=== PATIENT | female | born 1960 | race Caucasian/White ===

== ENCOUNTER 2022-03-19 07:00 | Day surgery (SDC) | payer MEDICARE, OTHER ==
[~2022-03-19] VITALS: Ht 165.1 cm; Wt 106.8 kg
[~2022-03-19 07:00] MED LIST: BAYER CHEWABLE81 MG PO; CARBIDOPA-LEVO1 EAC1 PO; CELEXA20 MG PO; CYCLOBENZAPRINE10 MG PO; DESONIDE15 G1; DIALYVITE 8001 EAC1 PO; FLONASE ALLERG9.9 ML; IMVEXXY10 MCG VG; KETOROLAC TROME10 MG PO; KLONOPIN0.5 MG PO; LEVOTHYROXINE150 MC1 PO; LOPID600 MG PO; MELATONIN5 M2 PO; MELOXICAM15 MG PO; MUCOSA400 MG PO; NEPHRON FA TAB1 EAC1 PO; OMEGA 3 1,0001 EACH PO; OPTIFLEX COMPL1 EACH PO; OSTERA TABLET1 EACH PO; PEPCID20 MG PO; PROAIR HFA8.5 GM; PROPRANOLOL HCL20 MG PO; SINGULAIR10 MG PO; ZINC10 MG PO; ZYRTEC10 MG PO
--- NOTE | 2022-03-19 07:37 | NUR ---
PT ARRIVED AND INTO ROOM 3. CHANGED INTO GROWN, VOIDED AND IV PLACED IN LT ARM AND SALINE LOCK IN RT HAND BY RN.
--- NOTE | 2022-03-19 08:41 | NUR ---
PT HAS BEEN UP AMBULATING TO THE BATHROOM, IV SITE WNL'S AT THIS TIME. IS OUT IN LOBBY WITH PAGER 13
[2022-03-19] MEDS ORDERED: TRAMADOL HCL50 MG PO (09:45)
--- NOTE | 2022-03-19 09:49 | NUR ---
03/19/22 0949 Lula Castanon 0944 PATIENT ARRIVES TO PACU RESTING WITH EYES CLOSED. ANSWERS QUESTIONS APPROPRIATELY WITH VERBAL STIMULI. RESP EVEN AND UNLABORED, MASK AT 6 LITERS, TURNED OFF ON ARRIVAL TO PACU.
--- NOTE | 2022-03-20 11:53 | OR ---
[facility] [address] [place], [place] [address] Signed DATE OF OPERATION: 03/19/2022 SURGEON: Sylvia Zuniga MD PREOPERATIVE DIAGNOSIS: Carpal tunnel syndrome, right. POSTOPERATIVE DIAGNOSIS: Carpal tunnel syndrome, right. PROCEDURE PERFORMED: Carpal tunnel release, right. COVER CREASER: None. ANESTHESIA: Alan block. TOURNIQUET TIME: 20 minutes. BRIEF HISTORY: Danilo is a 61-year-old female with progressive numbness and pain in her wrist. Nerve conduction studies were consistent with carpal tunnel. Risks and benefits of operative treatment were discussed with her and she elected to proceed. DESCRIPTION OF PROCEDURE: Once consent was obtained, she was taken to the operating room. After adequate anesthesia, she was placed on the hand table. The arm was prepped and draped in the standard sterile fashion and the incision was made in the distal wrist crease. This was carried through skin and subcutaneous tissue and directly down onto the transverse carpal ligament. The palmaris longus was identified, retracted, and protected. The transverse carpal ligament was dissected free from overlying soft tissue under loupe magnification. It was then released proximally a centimeter and distally to the distal extent. The transverse carpal ligament was noted to be completely released and palpated using the [place]. The wound was copiously irrigated with normal saline and closed with 3-0 nylon, injected with 7 mL of 0.25% Marcaine plain. The wound was dressed with bacitracin, Adaptic, 4x8's, and gauze. She tolerated the procedure well. All sponge, needle, and Electronically Signed By: SYLVIA ZUNIGA MD 03/20/22 1153 PATIENT NAME: DANILO ALTAMIRANO OPERATIVE REPORT DATE OF : 56 REPORT #: [id number] PHYSICIAN: SYLVIA ZUNIGA MD PCP: RELL CAMEJO MD REPORT IS CONFIDENTIAL AND NOT TO BE RELEASED WITHOUT AUTHORIZATION [facility] [address] [place], [place] [address], [place] [address] Signed instrument counts were correct. Sylvia Zuniga MD BA/MODL /[id number] Copies: ~ Electronically Signed By: SYLVIA ZUNIGA MD 03/20/22 1153 PATIENT NAME: DANILO ALTAMIRANO OPERATIVE REPORT DATE OF : 56 REPORT #: [id number] PHYSICIAN: SYLVIA ZUNIGA MD PCP: RELL CAMEJO MD REPORT IS CONFIDENTIAL AND NOT TO BE RELEASED WITHOUT AUTHORIZATION
== END 2022-03-19 10:20 | disposition home or self-care (01) ==
LOC: DS 07:00
PROVIDERS: ATTEND Specialist
PROC: 01N50ZZ Release Median Nerve, Open Approach (ICD-10-PCS; principal; 2022-03-19 10:00)
DX: G56.01 Carpal tunnel syndrome, right upper limb (principal); J45.909 Unspecified asthma, uncomplicated; G20 Parkinson's disease; Z88.5 Allergy status to narcotic agent; Z88.1 Allergy status to other antibiotic agents; Z88.8 Allergy status to other drugs, medicaments and biological substances; Z91.012 Allergy to eggs; Z91.018 Allergy to other foods; Z91.048 Other nonmedicinal substance allergy status
CPT/HCPCS: J0131; J0690; J2405; J2704

== ENCOUNTER 2022-05-07 08:20 | Day surgery (SDC) | payer MEDICARE, OTHER ==
[~2022-05-07] VITALS: Ht 165.1 cm; Wt 106.8 kg
[~2022-05-07 08:20] MED LIST changes: +TRAMADOL HCL50 MG PO
[2022-05-07] MEDS ORDERED: HYDROCODON-ACE1 EA10 PO (11:11)
--- NOTE | 2022-05-07 12:03 | NUR ---
05/07/22 1203 Jenae Fernandez 1109 PT ARRIVED IN PACU AWAKE WITH NO C/O'S. L HAND ELEVATED ON PILLOW AND ICE PLACED. 1120 SITTING UP IN BED VISITING WITH STAFF. 1145 DC INSTRUCTIONS GIVEN. ALL QUESTIONS ANSWERED. 1200 UP TO BATHROOM. VOIDED. 1205 LEFT VIA W/C.
--- NOTE | 2022-05-08 08:55 | OR ---
[facility] [address] [place], [place] [address] Signed DATE OF OPERATION: 05/07/2022 SURGEON: Sylvia Zuniga MD PREOPERATIVE DIAGNOSIS: Carpal tunnel syndrome, left. POSTOPERATIVE DIAGNOSIS: Carpal tunnel syndrome, left. PROCEDURE PERFORMED: Left carpal tunnel release. INSPECTOR PENETRANT: None. ANESTHESIA: Alan block. TOURNIQUET TIME: 12 minutes. BRIEF HISTORY: Danilo is a 62-year-old female with bilateral carpal tunnel. She had undergone successful right release and wished to proceed with the left. Risks and benefits were discussed with her and she elected to proceed. Once consent was obtained, she was taken to the operating room after adequate anesthesia, she was left on day surgery cart. The hand table was brought in and after adequate anesthesia, the hand was prepped and draped in a standard sterile fashion. A 1.5 cm incision was made in the distal wrist crease, carried through skin and subcutaneous tissue and directly down onto the transverse carpal ligament. There was some remnants of palmaris longus that were retracted. The overlying soft tissue was removed off the transverse carpal ligament under loupe magnification. It was then transected approximately a centimeter and distally to the distal extent. This was palpated using a [place] and found to be completely released. The wound was copiously irrigated with normal saline and closed with 3-0 nylon and injected with 6 mL of 0.25% Marcaine plain. The wound was dressed with bacitracin, Adaptic, 4 x 8's, gauze. She tolerated the procedure well. All sponge, needle, and instrument counts were correct. Electronically Signed By: SYLVIA ZUNIGA MD 05/08/22 0855 PATIENT NAME: DANILO ALTAMIRANO OPERATIVE REPORT DATE OF : 56 REPORT #: [id number] PHYSICIAN: SYLVIA ZUNIGA MD PCP: RELL CAMEJO MD REPORT IS CONFIDENTIAL AND NOT TO BE RELEASED WITHOUT AUTHORIZATION [address] [address] Signed Sylvia Zuniga MD BA/MODL /[id number] Copies: ~ Electronically Signed By: SYLVIA ZUNIGA MD 05/08/22 0855 PATIENT NAME: DANILO ALTAMIRANO OPERATIVE REPORT DATE OF : 56 REPORT #: [id number] PHYSICIAN: SYLVIA ZUNIGA MD PCP: RELL CAMEJO MD REPORT IS CONFIDENTIAL AND NOT TO BE RELEASED WITHOUT AUTHORIZATION
== END 2022-05-07 11:50 | disposition home or self-care (01) ==
LOC: DS 08:20
PROVIDERS: ATTEND Specialist
PROC: 01N50ZZ Release Median Nerve, Open Approach (ICD-10-PCS; principal; 2022-05-07 12:25)
DX: G56.02 Carpal tunnel syndrome, left upper limb (principal)
CPT/HCPCS: J0690; J1885; J2001; J2704; J7121

== ENCOUNTER 2023-09-02 20:48 | Emergency (ER) | payer MEDICARE, OTHER ==
[~2023-09-02] VITALS: Ht 165.1 cm; Wt 109.0 kg
[~2023-09-02 20:48] MED LIST changes: +BENZONATATE100 MG PO; +FLOVENT HFA10.6 GM INH; +GABAPENTIN300 MG PO; +HYDROCODON-ACE1 EA10 PO; +HYDROCODON-ACE1 EA11 PO; +METHOCARBAMOL500 MG PO; +OXYCODONE HCL5 MG PO
--- OUTSIDE RECORDS SUMMARY | 2023-09-02 20:50 | XMS ---
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 Anthony VISIT COUNT (12 MO.) [address] TOTAL 3 NOTE: Visits indicate total known visits. ED/UCC VISIT TRACKING (12 MO.) 09/02/2023 20:49 [facility] [place] TYPE: Emergency COMPLAINT: - CHEST PAIN, SOB 09/02/2023 17:37 [facility] [employer] [facility] [place] TYPE: Emergency COMPLAINT: - Chest Pain DIAGNOSES: - Chest Pain 10/22/2022 11:45 [facility] [employer] [facility] [place] TYPE: Emergency DIAGNOSES: - Contusion of scalp, initial encounter - FALL HIT HEAD INPATIENT VISIT TRACKING (12 MO.) No inpatient visits to display in this time frame [email or web address]
[2023-09-02 21:07] LABS: BASOPHILS 0.4 % (0-2); EOSINOPHILS 2.4 % (0-6); HEMATOCRIT 38.5 % (35.0-50.0); HEMOGLOBIN 12.4 g/dL (12.0-18.0); LYMPHOCYTES 21.1 % (24-44); MCH 29.1 (27-36); MCHC 32.3 g/dl (30-36); MCV 90.3 fl (81-99); MONOCYTES 8.1 % (0-12); PLATELET COUNT 380 K/uL (140-440); RBC 4.26 M/ul (4.3-5.7); RDW 13.6 (10.5-15.0)
[2023-09-02] MEDS ORDERED: CITALOPRAM HBR20 MG PO (21:08)
[2023-09-02 21:29] LABS: ALBUMIN 2.8 g/dL (3.4-5.0); ALBUMIN/GLOBULIN RATIO 0.55 (1.1-2.4); BILIRUBIN, TOTAL 0.3 ng/dL (0.2-1.0); BUN/CREATININE RATIO 22.22 (6.0-28.6); CALCIUM 9.6 mg/dL (8.5-10.1); CREATININE, SERUM 0.81 mg/dL (0.55-1.02); PROTEIN, TOTAL 7.9 g/dL (6.4-8.2)
[2023-09-02 21:41] LABS: INR 0.98 (0.80-1.30); PARTIAL THROMBOPLASTIN TIME 36.5 Sec (22.9-41.3); PROTIME 12.6 Sec (11.2-14.2)
[2023-09-02 21:57] LABS: INFLUENZA B NAA NEGATIVE (NEGATIVE); RESPIRATORY SYNCYTIAL VIR NAA NEGATIVE (NEGATIVE)
[2023-09-02] MEDS ORDERED: AZITHROMYCIN500 MG PO (23:11)
[2023-09-02] MEDS ORDERED: CEFDINIR300 MG PO (23:11)
[2023-09-02] MEDS ORDERED: FLUCONAZOLE150 MG PO (23:32)
[2023-09-02 23:40] VITALS: BP 147/62
--- NOTE | 2023-09-03 22:32 | EKG ---
[facility] [address] [place] [address] Signed Normal sinus rhythm Normal ECG When compared with ECG of 16-AUG-2023 12:55, No significant change was found Confirmed by Jason Mcneil MD () on 09/03/2023 10:32:21 PM Electronically Signed By: JASON MCNEIL MD 09/03/232231 PATIENT NAME: DANILO ALTAMIRANO ALEXSANDRA Electrocardiogram DATE OF : 56 PHYSICIAN: JASON MCNEIL MD REPORT #: [id number] REPORT IS CONFIDENTIAL AND NOT TO BE RELEASED WITHOUT AUTHORIZATION
== END 2023-09-02 23:40 | disposition home or self-care (01) ==
LOC: ED 20:48
PROVIDERS: Family Medicine
DX: J18.9 Pneumonia, unspecified organism (principal); J45.909 Unspecified asthma, uncomplicated; G20.A1 Parkinson's disease without dyskinesia, without mention of fluctuations; Z20.822 Contact with and (suspected) exposure to COVID-19; Z98.890 Other specified postprocedural states; Z88.6 Allergy status to analgesic agent; Z88.1 Allergy status to other antibiotic agents; Z91.012 Allergy to eggs; Z91.040 Latex allergy status; Z88.5 Allergy status to narcotic agent; Z88.8 Allergy status to other drugs, medicaments and biological substances; Z91.018 Allergy to other foods; Z91.048 Other nonmedicinal substance allergy status; Z79.82 Long term (current) use of aspirin; Z79.890 Hormone replacement therapy; Z79.899 Other long term (current) drug therapy
CPT/HCPCS: 36415; 71045; 71260; 80053; 84484; 85025; 85379; 85610; 85730; 87502; 93005; 93010; 94640; 94664; 96374; 96375; 99285-25; J0696; J1100; J1200; Q9967; U0002

== ENCOUNTER 2024-06-13 15:55 | Inpatient (IN) | payer MEDICARE, OTHER ==
[~2024-06-13] VITALS: Ht 165.1 cm; Wt 101.0 kg
[~2024-06-13 15:55] MED LIST changes: +ADULT LOW DOSE81 MG PO; +AZITHROMYCIN500 MG PO; +B COMPLEX1 EACH PO; -BAYER CHEWABLE81 MG PO; +CALCIUM 500 MG1 EAC6 PO; +CEFDINIR300 MG PO; +CITALOPRAM HBR20 MG PO; +FLUCONAZOLE150 MG PO; +MUCINEX1200 MG PO; -MUCOSA400 MG PO; -NEPHRON FA TAB1 EAC1 PO; -OSTERA TABLET1 EACH PO; +PRILOSEC OTC20 MG PO; +PROAIR DIGIHAL90 MCG INH; -PROAIR HFA8.5 GM; -ZINC10 MG PO; +ZINC50 MG PO
[2024-06-13] MEDS ORDERED: DESONIDE15 G1 TOP (16:32)
[2024-06-13] MEDS ORDERED: DICLOFENAC SODI75 MG PO (16:33)
[2024-06-13] MEDS ORDERED: DULOXETINE HCL30 MG PO (16:34)
[2024-06-13] MEDS ORDERED: FLUTICASONE P10.6 GM INH (16:35)
[2024-06-13] MEDS ORDERED: ZYRTEC10 MG PO (16:39)
[2024-06-13] MEDS ORDERED: ondansetron HCL 4 MG/2 ML VIAL IV ONE (17:15)
[2024-06-13] MEDS ORDERED: SODIUM CHLORIDE 0.9% 1,000 ML IV ONE (17:15)
[2024-06-13 17:40] LABS: BASOPHILS 0.3 % (0-2); EOSINOPHILS 1.2 % (0-6); HEMATOCRIT 30.9 % (35.0-50.0); HEMOGLOBIN 10.1 g/dL (12.0-18.0); LYMPHOCYTES 9.8 % (24-44); MCH 27.2 (27-36); MCHC 32.6 g/dl (30-36); MCV 83.2 fl (81-99); MONOCYTES 9.6 % (0-12); NEUTROPHILS 79.1 % (39-80); PLATELET COUNT 481 K/uL (140-440); RBC 3.71 M/ul (4.3-5.7); RDW 14.2 (10.5-15.0)
[2024-06-13 17:47] LABS: ALBUMIN 1.8 g/dL (3.4-5.0); ALBUMIN/GLOBULIN RATIO 0.45 (1.1-2.4); ANION GAP 12.2 (7-21); BILIRUBIN, TOTAL 0.5 ng/dL (0.2-1.0); BUN/CREATININE RATIO 19.53 (6.0-28.6); CALCIUM 8.9 mg/dL (8.5-10.1); CREATININE, SERUM 1.28 mg/dL (0.55-1.02); MAGNESIUM 1.9 mg/dL (1.8-2.4); POTASSIUM 4.2 mmol/L (3.5-5.1); PROTEIN, TOTAL 5.8 g/dL (6.4-8.2)
[2024-06-13] MEDS ORDERED: SODIUM CHLORIDE 0.9% 1,000 ML IV SCH (19:15)
[2024-06-13 19:39] LABS: BILIRUBIN, URINE NEGATIVE (negative); BLOOD/HGB, URINE NEGATIVE (Negative); KETONE, URINE NEGATIVE (Negative); LEUK ESTERASE, URINE NEGATIVE (negative); NITRITE, URINE NEGATIVE (negative); PH, URINE 5.5 (5-7)
[2024-06-13] MEDS ORDERED: diphenhydrAMINE HCL 50 MG/ML VIAL IV ONE (20:15)
[2024-06-13] MEDS ORDERED: DEXAMETHASONE SOD PHOS 4 MG/ML VIAL IV ONE (20:15)
[2024-06-13] MEDS ORDERED: droPERidol 5 MG/2 ML VIAL IV ONE (21:00)
[2024-06-13] MEDS ORDERED: FAMOTIDINE 20 MG/ 2 ML VIAL IV SCH (21:44)
[2024-06-13] MEDS ORDERED: ACETAMINOPHEN 325 MG TAB PO PRN (21:45)
[2024-06-13] MEDS ORDERED: ondansetron HCL 4 MG/2 ML VIAL IV PRN (21:45)
[2024-06-13] MEDS ORDERED: DEXTROSE 5% - LACTATED RINGERS 1,000 ML IV SCH (21:45)
[2024-06-13 22:08] VITALS: BP 126/55
[2024-06-13] MEDS ORDERED: LEVODOPA/CARBIDOPA 25/100 1 EA TAB PO SCH (22:31)
[2024-06-13] MEDS ORDERED: MELATONIN 3 MG TAB PO SCH (22:35)
[2024-06-13 23:26] VITALS: BP 117/44
[2024-06-14] VITALS (7 sets, daily range): BP systolic 112–151; BP diastolic 46–60
[2024-06-14 06:08] LABS: BASOPHILS 0.2 % (0-2); EOSINOPHILS 0.1 % (0-6); HEMATOCRIT 27.2 % (35.0-50.0); LYMPHOCYTES 13.5 % (24-44); MCH 27.7 (27-36); MCHC 33.1 g/dl (30-36); MCV 83.5 fl (81-99); MONOCYTES 6.3 % (0-12); NEUTROPHILS 79.9 % (39-80); PLATELET COUNT 451 K/uL (140-440); RBC 3.25 M/ul (4.3-5.7); RDW 14.4 (10.5-15.0)
[2024-06-14 06:25] LABS: ALBUMIN 1.6 g/dL (3.4-5.0); ALBUMIN/GLOBULIN RATIO 0.43 (1.1-2.4); ANION GAP 13.5 (7-21); BILIRUBIN, TOTAL 0.2 ng/dL (0.2-1.0); BUN/CREATININE RATIO 16.93 (6.0-28.6); CALCIUM 8.7 mg/dL (8.5-10.1); CREATININE, SERUM 1.24 mg/dL (0.55-1.02); MAGNESIUM 2.1 mg/dL (1.8-2.4); POTASSIUM 4.5 mmol/L (3.5-5.1); PROTEIN, TOTAL 5.3 g/dL (6.4-8.2)
[2024-06-14] MEDS ORDERED: CLONAZEPAM1 MG PO (09:25)
[2024-06-14] MEDS ORDERED: LEVOTHYROXINE150 MCG PO (09:31)
[2024-06-14] MEDS ORDERED: LACTATED RINGER'S 1,000 ML IV SCH (10:15)
[2024-06-14] MEDS ORDERED: ACETAMINOPHEN 325 MG TAB PO PRN (10:15)
[2024-06-14] MEDS ORDERED: ondansetron HCL 4 MG/2 ML VIAL IV PRN (10:15)
[2024-06-14] MEDS ORDERED: PHARMACY RENAL DOSE ADJUSTMENT 1 DOSE MISC PO SCH (12:00)
[2024-06-14] MEDS ORDERED: PANTOPRAZOLE SODIUM 40 MG/10 ML VIAL IV SCH (14:45)
[2024-06-14] MEDS ORDERED: DEXAMETHASONE SOD PHOS 4 MG/ML VIAL IV SCH (21:00)
[2024-06-15] VITALS (9 sets, daily range): BP systolic 137–149; BP diastolic 64–88
[2024-06-15 05:41] LABS: HEMATOCRIT 27.3 % (35.0-50.0); HEMOGLOBIN 8.9 g/dL (12.0-18.0); MCH 27.1 (27-36); MCHC 32.6 g/dl (30-36); MCV 83.1 fl (81-99); PLATELET COUNT 481 K/uL (140-440); RBC 3.28 M/ul (4.3-5.7); RDW 14.3 (10.5-15.0)
[2024-06-15 05:53] LABS: ALBUMIN 1.7 g/dL (3.4-5.0); ALBUMIN/GLOBULIN RATIO 0.47 (1.1-2.4); ANION GAP 13.2 (7-21); BILIRUBIN, TOTAL 0.3 ng/dL (0.2-1.0); BUN/CREATININE RATIO 8.73 (6.0-28.6); CALCIUM 8.8 mg/dL (8.5-10.1); CREATININE, SERUM 1.03 mg/dL (0.55-1.02); MAGNESIUM 1.5 mg/dL (1.8-2.4); PHOSPHORUS, INORGANIC 3.4 mg/dL (2.5-4.9); POTASSIUM 4.2 mmol/L (3.5-5.1); PROTEIN, TOTAL 5.3 g/dL (6.4-8.2)
[2024-06-15 05:58] LABS: BANDS, MANUAL DIFF 4; LYMPHOCYTES, MANUAL DIFF 25; MONOCYTES, MANUAL DIFF 8; NEUTROPHILS, MANUAL DIFF 63
[2024-06-15] MEDS ORDERED: MAGNESIUM CHLORIDE 64 MG TABCR PO ONE (08:30)
[2024-06-15] MEDS ORDERED: propofoL 200 MG/20 ML VIAL ONE (14:33)
[2024-06-15] MEDS ORDERED: PANTOPRAZOLE SODIUM 40 MG TABEC PO SCH (16:45)
[2024-06-15] MEDS ORDERED: MESALAMINE 400 MG CAPCR PO SCH (17:00)
[2024-06-15] MEDS ORDERED: metroNIDAZOLE 250 MG TAB PO SCH (17:00)
[2024-06-15] MEDS ORDERED: HYDROCORTISONE SOD SUCCINATE 100 MG/2 ML VIAL IV SCH (22:00)
[2024-06-16] VITALS (12 sets, daily range): BP systolic 129–148; BP diastolic 57–88
[2024-06-16 06:33] LABS: HEMATOCRIT 27.6 % (35.0-50.0); MCH 27.5 (27-36); MCHC 32.8 g/dl (30-36); MCV 83.8 fl (81-99); PLATELET COUNT 510 K/uL (140-440); RBC 3.29 M/ul (4.3-5.7); RDW 14.6 (10.5-15.0)
[2024-06-16 06:53] LABS: ALBUMIN 1.6 g/dL (3.4-5.0); ALBUMIN/GLOBULIN RATIO 0.47 (1.1-2.4); ANION GAP 12.8 (7-21); BILIRUBIN, TOTAL 0.2 ng/dL (0.2-1.0); BUN/CREATININE RATIO 5.68 (6.0-28.6); CALCIUM 8.2 mg/dL (8.5-10.1); CREATININE, SERUM 0.88 mg/dL (0.55-1.02); MAGNESIUM 1.4 mg/dL (1.8-2.4); PHOSPHORUS, INORGANIC 3.6 mg/dL (2.5-4.9); POTASSIUM 3.8 mmol/L (3.5-5.1); TSH, 3RD GENERATION 1.746 uIU/mL (0.358-3.740)
[2024-06-16 06:56] LABS: BANDS, MANUAL DIFF 1; LYMPHOCYTES, MANUAL DIFF 19; MONOCYTES, MANUAL DIFF 6; NEUTROPHILS, MANUAL DIFF 74
[2024-06-16] MEDS ORDERED: POTASSIUM CHLORIDE 40 MEQ,LIDOCAINE HCL 1% 40 MG in DEXTROSE 5% 250 ML IV ONE (08:30)
[2024-06-16] MEDS ORDERED: MAGNESIUM SULFATE 2 GM/50 ML BAG IV SCH (08:30)
[2024-06-16] MEDS ORDERED: predniSONE 20 MG TAB PO SCH (09:00)
[2024-06-16] MEDS ORDERED: clonazePAM 1 MG TAB PO PRN (16:45)
[2024-06-16] MEDS ORDERED: GABAPENTIN 300 MG CAP PO SCH (21:00)
[2024-06-16] MEDS ORDERED: MONTELUKAST SODIUM 10 MG TAB PO SCH (21:00)
[2024-06-16] MEDS ORDERED: PROPRANOLOL HCL 20 MG TAB PO SCH (21:00)
--- NOTE | 2024-06-16 21:20 | EKG ---
[facility] [address] [facility] [place] [address] Signed Atrial fibrillation with rapid ventricular response Low voltage QRS Abnormal QRS-T angle, consider primary T wave abnormality Abnormal ECG When compared with ECG of 02-SEP-2023 20:56, Atrial fibrillation is now present Confirmed by Jason Mcneil MD () on 06/16/2024 9:20:51 PM Electronically Signed By: JASON MCNEIL MD 06/16/242119 PATIENT NAME: DANILO ALTAMIRANO Electrocardiogram DATE OF : 56 PHYSICIAN: JASON MCNEIL MD REPORT #: [id number] REPORT IS CONFIDENTIAL AND NOT TO BE RELEASED WITHOUT AUTHORIZATION
[2024-06-17] VITALS (10 sets, daily range): BP systolic 129–158; BP diastolic 57–75
[2024-06-17 05:16] LABS: BASOPHILS 0.4 % (0-2); EOSINOPHILS 0.2 % (0-6); HEMOGLOBIN 8.8 g/dL (12.0-18.0); LYMPHOCYTES 11.7 % (24-44); MCH 27.2 (27-36); MCHC 32.6 g/dl (30-36); MCV 83.3 fl (81-99); MONOCYTES 2.6 % (0-12); NEUTROPHILS 85.1 % (39-80); PLATELET COUNT 507 K/uL (140-440); RBC 3.24 M/ul (4.3-5.7); RDW 14.6 (10.5-15.0)
[2024-06-17 05:31] LABS: ALBUMIN 1.7 g/dL (3.4-5.0); ALBUMIN/GLOBULIN RATIO 0.5 (1.1-2.4); ANION GAP 8.3 (7-21); BILIRUBIN, TOTAL 0.1 ng/dL (0.2-1.0); BUN/CREATININE RATIO 6.38 (6.0-28.6); CALCIUM 8.5 mg/dL (8.5-10.1); CREATININE, SERUM 0.94 mg/dL (0.55-1.02); POTASSIUM 4.3 mmol/L (3.5-5.1); PROTEIN, TOTAL 5.1 g/dL (6.4-8.2)
[2024-06-17] MEDS ORDERED: LEVOTHYROXINE SODIUM 150 MCG TAB PO SCH (06:00)
[2024-06-17] MEDS ORDERED: DULOXETINE HCL 30 MG CAP PO SCH (09:00)
[2024-06-17] MEDS ORDERED: CITALOPRAM HYDROBROMIDE 20 MG TAB PO SCH (09:00)
--- NOTE | 2024-06-17 14:26 | OR ---
[facility] [place] [facility] [address] [place], [place] [address] Signed DATE OF OPERATION: 06/15/2024 SURGEON: Fercho Howell MD PREOPERATIVE DIAGNOSES: 1. Intractable diarrhea, progressive weight loss. CT findings consistent with colitis. 2. History of norovirus infection greater than two weeks ago; negative Clostridium difficile, negative enteric pathogens. 3. Elevated CRP greater than 20. POSTOPERATIVE DIAGNOSIS: Pancolitis including rectum, most consistent with ulcerative colitis. PROCEDURE: Total colonoscopy with multiple biopsies. ANESTHESIA: Intravenous sedation propofol infusion. INDICATION: This 64-year-old white woman lives in [place], [place]. Has had six weeks of progressive weight loss, intractable diarrhea and rare blood per rectum. She was evaluated in [place] and noted to have a norovirus positive stool approximately two weeks ago, but no unusual travel or cruise ship activity. She presented to emergency room on June 13, evaluated by Dr. Castillo and ultimately admitted by Dr. Ortiz. A CT scan was performed which showed inflammatory change of the mucosa. She had been treated as an outpatient with Imodium and Pepto-Bismol; she is a patient of Dr. Waldrop in [place]. Consultation was requested regarding this and I have recommended colonoscopy on the basis of her symptoms and high probability, this represents inflammatory bowel disease. Colonoscopy is recommended. She did not undergo a bowel prep per se, as she has had profound diarrhea all along. The risk of bleeding, infection, and perforation were reviewed with her. She understands and wished to proceed. FINDINGS: Indeed she had pancolitis. Friability of the mucosa was significant. There were some minimal pseudomembrane formation, but the diagnosis remains most consistent with ulcerative colitis. There was inflammation of the rectum as well. She had scattered diverticula, but no polyps and certainly no malignancy. 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 She had a digital rectal examination that was performed which was normal. Olympus video colonoscope was passed in the rectum and manipulated throughout the colon as far as possible. Ultimately terminating in the area consistent with cecum. No distortion of the anatomy was noted related to inflammatory changes, which were significant. Biopsies were obtained. She did have erythematous base, easy friability of the mucosa and its semi-formation of pseudomembrane to a degree. Biopsies were taken. Upon withdrawal of scope throughout the colon including the rectum, there were a few diverticula. No polyps, no cancer. The scope was removed. The patient was taken to the recovery room in good condition. CONCLUDING DIAGNOSIS: Findings are most consistent with ulcerative colitis, particularly as she has improved somewhat with Decadron administration. My recommendation would be to initiate hydrocortisone 100 mg IV q.8 hours, transition to prednisone 40 mg daily tapering 10 mg weekly every two weeks. I would also recommend initiation of mesalamine 800 mg p.o. t.i.d. pending biopsy results as well as PPI medication to avoid increased risk of ulceration of the stomach in elsewhere and initiate Flagyl 250 mg p.o. t.i.d. on the possibility of underlying enteric pathogen despite recent cultures being negative and of course maintain DVT prophylaxis as patients with inflammatory bowel disease are at increased risk of thrombotic complications. I would see her in followup in four to six weeks as well. MD GOKUL Andre/PRETTYL /[id number] cc: Manjinder Noguera Dr. [facility] Electronically Signed By: FERCHO HOWELL MD 06/17/24 1426 PATIENT NAME: DANILO ALTAMIRANO OPERATIVE REPORT DATE OF : 56 REPORT #: [id number] PHYSICIAN: FERCHO HOWELL MD PCP: ARTURO WALDROP MD REPORT IS CONFIDENTIAL AND NOT TO BE RELEASED WITHOUT AUTHORIZATION [facility] [place] [facility] [address] [place], [place] [address] Signed Copies: ~ Electronically Signed By: FERCHO HOWELL MD 06/17/24 1426 PATIENT NAME: ALTAMIRANODANILO ALEXSANDRA OPERATIVE REPORT DATE OF : 56 REPORT #: [id number] PHYSICIAN: FERCHO HOWELL MD PCP: ARTURO WALDROP MD REPORT IS CONFIDENTIAL AND NOT TO BE RELEASED WITHOUT AUTHORIZATION
--- NOTE | 2024-06-17 14:27 | CONS ---
[facility] [address] [place], [place] [address] Signed DATE OF CONSULTATION: 06/14/2024 REQUESTING PHYSICIAN: Dr. Ortiz. ISSUE: Significant diarrhea, probable colitis. HISTORY OF PRESENT ILLNESS: This 64-year-old white woman lives in [place], [place]. She is a mother of Viv Altamirano, who works at [employer] and is her daughter. The patient has had essentially six weeks of progressive weight loss, intractable diarrhea and only rare and occasional blood per rectum. She has been evaluated in [place] and was noted to have a norovirus positive stool test approximately two weeks ago. She had no unusual travel or cruise ship activity and her source of norovirus is uncertain. She presents to the emergency room approximately 5 p.m. on June [address] Castillo. It was noted that the patient had at least five bowel movements while in the emergency room. She does believe she has had fever, though she has not measured her temperature actually. She was tested for C difficile in the emergency room and it was negative. She has had a fecal blood test which was positive on June 01 and her symptoms have not improved despite attempts at Imodium and Pepto-Bismol. Indeed, both interventions made things worse. She has a prior medical history of asthma, Parkinson disease, history of stroke and concussion in 2022. PAST SURGICAL HISTORY: Includes hysterectomy, cholecystectomy, right knee surgery, tonsillectomy, wisdom tooth removal and right shoulder operation. ALLERGIES: She has numerous allergies which she describes as latex (severe anaphylaxis, sulfa medications with same response). Cipro, Keppra, melons, pumpkins, tree nuts, hydrocodone, iodine, quinolones causing muscle pain. MEDICATIONS: Her medications at admission include diclofenac, duloxetine, fluticasone, aspirin, carbidopa levodopa, citalopram, clonazepam, gemfibrozil, guaifenesin, melatonin, montelukast, albuterol, propranolol, and number of supplements. She also takes gabapentin 300 mg p.o. t.i.d. She denies any hematemesis and in general terms has improved since admission in the hospital. Interventions since hospitalization did include administration of Decadron in Electronically Signed By: FERCHO HOWELL MD 06/17/24 1427 PATIENT NAME: DANILO ALTAMIRANO CONSULTATION DATE OF : 56 REPORT #: [id number] PHYSICIAN: FERCHO HOWELL MD PCP: ARTURO WALDROP MD REPORT IS CONFIDENTIAL AND NOT TO BE RELEASED WITHOUT AUTHORIZATION [facility] [address] [place], [place] [address] Signed addition to fluid resuscitation as well as diphenhydramine. She received 4 mg of dexamethasone IV at time of admission, but is not on steroids currently. Notably, a CT scan of the abdomen was performed at approximately 9:15 a.m. last night, which confirmed mild diffuse colonic wall thickening and enhancement with scattered dependent calcifications suggestive of colitis as well as fatty liver disease. SOCIAL HISTORY: She lives in [place] as noted. She is retired and is . REVIEW OF SYSTEMS: Denies any shortness of breath or chest pain. She has much more comfort now than when before she was admitted. She is having no blood per rectum now. PHYSICAL EXAMINATION: VITAL SIGNS: Somewhat obese white woman who looks to be in no acute distress and is not systemically toxic. Temperature is 97.8, pulse 78, blood pressure 135/58. Room air saturation 99%. She has a BMI of 37.1 with height of 5 feet 5 inches and weight 101 kg. GENERAL: Pleasant white woman is nontoxic in appearance. NECK: Trachea is midline. CHEST: Clear. HEART: Regular without murmur. ABDOMEN: Obese, but soft. She has no focal mass, tenderness, or ascites. EXTREMITIES: Show no clubbing, cyanosis, or edema. She does not have SCDs in place now. LABORATORY STUDIES: At admission last night includes white count of 11.7, hematocrit 30.9, platelets 481,000. White count is 9.5, hematocrit 27.2, platelets 451,000. Chem profile performed at admission showed a creatinine of 1.28, now down to 1.24. A C-reactive protein was obtained under my direction today that was 20.23 (normal up to 0.9). Her albumin is 1.6 this morning, 1.8 yesterday. ASSESSMENT: Most likely patient has ulcerative colitis, so certainly possible that other could be possible including lymphocytic colitis or infection related colitis of some sort. She is said to have had testing for Clostridium difficile that was negative. She has had outpatient stool studies in [place] that were said to be negative though I do not have actual copies of them at this time. I would recommend colonoscopy to better confirm or refute the findings of colitis from a clinical and radiographic standpoint and perhaps better classify the type of inflammation with biopsies. Even if the colon looked normal would consider doing biopsies on the possibility of lymphocytic colitis, which typically has no gross abnormal appearance on endoscopy. More likely, however, she will have ulcerative Electronically Signed By: FERCHO HOWELL MD 06/17/24 1853 PATIENT NAME: DANILO ALTAMIRANO CONSULTATION DATE OF : 56 REPORT #: [id number] PHYSICIAN: FERCHO HOWELL MD PCP: ARTURO WALDROP MD REPORT IS CONFIDENTIAL AND NOT TO BE RELEASED WITHOUT AUTHORIZATION [facility] [address] [facility] [place], [place] [address] Signed colitis findings for which an anti-inflammatory regimen would be initiated. She already has been on Decadron and whether she is feeling better because of that is uncertain. I believe she has likely cleaned out all she needs to be given her underlying pathologic process and on that basis, we will not push for a formal bowel prep. We will allow clear liquids and plan for sedation tomorrow. She will most likely benefit from propofol infusional technique considering numerous medicines which likely would give her considerable tolerance to the usual regimen. The risk of bleeding, infection, perforation, and so forth were reviewed in detail. She understands and wished to proceed. Additionally, we will initiate prophylaxis against deep venous thrombosis considering the probability of this being inflammatory bowel disease, which has a much higher risk of thrombotic complications. MD GOKUL Andre/JAZMINE /[id number] cc: Dr. Ortiz Copies: ~ Electronically Signed By: FERCHO HOWELL MD 06/17/24 1427 PATIENT NAME: DANILO ALTAMIRANO CONSULTATION DATE OF : 56 REPORT #: [id number] PHYSICIAN: FERCHO HOWELL MD PCP: ARTURO WALDROP MD REPORT IS CONFIDENTIAL AND NOT TO BE RELEASED WITHOUT AUTHORIZATION
[2024-06-18 01:35] VITALS: BP 149/61
[2024-06-18 05:24] VITALS: BP 148/66
[2024-06-18 05:26] VITALS: BP 148/66
[2024-06-18 06:04] LABS: HEMATOCRIT 28.2 % (35.0-50.0); HEMOGLOBIN 9.2 g/dL (12.0-18.0); MCH 27.1 (27-36); MCHC 32.5 g/dl (30-36); MCV 83.3 fl (81-99); PLATELET COUNT 606 K/uL (140-440); RBC 3.39 M/ul (4.3-5.7); RDW 14.6 (10.5-15.0)
[2024-06-18 06:12] LABS: ANION GAP 10.6 (7-21); BUN/CREATININE RATIO 11.7 (6.0-28.6); CALCIUM 8.5 mg/dL (8.5-10.1); CREATININE, SERUM 0.94 mg/dL (0.55-1.02); MAGNESIUM 1.9 mg/dL (1.8-2.4); POTASSIUM 3.6 mmol/L (3.5-5.1)
[2024-06-18 06:23] LABS: BANDS, MANUAL DIFF 1; LYMPHOCYTES, MANUAL DIFF 15; MONOCYTES, MANUAL DIFF 2; NEUTROPHILS, MANUAL DIFF 82
[2024-06-18] MEDS ORDERED: MAGNESIUM CHLORIDE 64 MG TABCR PO ONE (07:30)
[2024-06-18] MEDS ORDERED: POTASSIUM CHLORIDE 10 MEQ TABCR ONE (08:10)
[2024-06-18] MEDS ORDERED: POTASSIUM CHLORIDE 10 MEQ TABCR PO ONE (08:30)
[2024-06-18 08:36] VITALS: BP 148/66
[2024-06-18] MEDS ORDERED: PANTOPRAZOLE SODIUM 40 MG TABEC PO SCH (09:00)
[2024-06-18 09:35] VITALS: BP 150/90
[2024-06-18 13:38] VITALS: BP 150/76
[2024-06-18] MEDS ORDERED: METRONIDAZOLE250 MG PO (14:00)
[2024-06-18] MEDS ORDERED: DELZICOL400 M1 PO (14:01)
[2024-06-18] MEDS ORDERED: PANTOPRAZOLE SO40 MG PO (14:01)
[2024-06-18] MEDS ORDERED: PREDNISONE20 MG PO (14:02)
[2024-06-18] MEDS ORDERED: DIFLUCAN100 MG PO (14:04)
--- NOTE | 2024-06-25 13:27 | PATH ---
[facility] [address], [place] [address] Signed SPECIMEN(S): A PROXIMAL COLON BIOPSY SPECIMEN(S): B MID COLON BIOPSY SPECIMEN(S): C DESCENDING COLON BIOPSY SPECIMEN(S): D SIGMOID COLON BIOPSY SPECIMEN(S): E RECTUM COLON BIOPSY SPECIMEN SOURCE: A. PROXIMAL COLON BIOPSY B. MID COLON BIOPSY C. DESCENDING COLON BIOPSY D. SIGMOID COLON BIOPSY E. RECTUM COLON BIOPSY CLINICAL HISTORY: Colitis, unintentional weight loss, pancolitis, renal insufficiency FINAL PATHOLOGIC DIAGNOSIS: A. Proximal colon, biopsy: - Portions of completely ulcerated colonic mucosa. - Portions of colonic mucosa with straight, nonbranching glands, surface epithelial damage, and withering of superficial crypts. - Hypocellular fibrosis of the lamina propria in areas of epithelial damage. - No acute cryptitis, acute crypt abscesses, or granulomas identified. - Negative for dysplasia and malignancy. B. Mid colon, biopsy: - One portion of completely ulcerated colonic mucosa. - Colonic mucosa with straight, nonbranching glands, damage to the surface epithelium, and withering of superficial crypts. - Hypocellular fibrosis of the lamina propria in areas of epithelial damage. - No acute cryptitis, acute crypt abscesses, or granulomas identified. - Negative for dysplasia and malignancy. C. Descending colon, biopsy: - Colonic mucosa with straight, nonbranching glands, damage to the surface epithelium, and withering of superficial crypts. - Hypocellular fibrosis of the lamina propria in areas of epithelial damage. - No ulceration, acute cryptitis, acute crypt abscesses, or granulomas identified. - Negative for dysplasia and malignancy. D. Sigmoid colon, biopsy: - Two portions of completely ulcerated mucosa. PATIENT NAME: DANILO ALTAMIRANO PATHOLOGY DATE OF : 56 REPORT #: [id number] PHYSICIAN: BJ ADHIKARI PCP: ARTURO WALDROP MD REPORT IS CONFIDENTIAL AND NOT TO BE RELEASED WITHOUT AUTHORIZATION [facility] [address], [place] [address] Signed - One portion of colonic mucosa with straight, nonbranching glands, surface epithelial damage, and withering of superficial crypts. - Hypocellular fibrosis of the lamina propria in areas of epithelial damage. - No acute cryptitis, acute crypt abscesses, or granulomas identified. - Negative for dysplasia and malignancy. E. Rectum, biopsy: - One partially ulcerated portion of colonic mucosa with sparse, short glands and damage to the surface epithelium. - One portion of colonic mucosa with very slight focal active colitis (single focus of acute cryptitis). - No acute crypt abscesses or granulomas identified. - Negative for dysplasia and malignancy. COMMENT: In most of the samples, there are portions of completely ulcerated colonic mucosa, alternating with colonic mucosa which has straight, non-branching glands, surface epithelial damage, and withering of the superficial aspects of the crypts. There is no viral cytopathic effect identified in the biopsies. The lamina propria in the superficial aspect of these pieces focally has a hypocellular, hyalinized appearance; however, trichrome stain does not show definite thickening of the subepithelial collagen layer. The differential diagnosis includes drug or medication induced injury, infectious colitis (toxigenic infection such as E. coli 0157 or Clostridioides), or possibly autoimmune disease. Given the extent of involvement and the lack of hemorrhage, ischemic colitis is also possible but considered less likely. Histologic features diagnostic of inflammatory bowel disease are not present. As a part of [facility] Match Up Person program, this case has been reviewed by a second pathologist with special expertise in gastrointestinal pathology. SDL MICROSCOPIC EXAMINATION: Special stains performed and reviewed: - Trichrome: No definite thickening of the subepithelial collagen layer (performed on blocks A1, B1, C1, and D1). Histologic sections of all submitted blocks are examined by light microscopy. These findings, together with the gross examination, support the pathologic diagnosis. SDL PATIENT NAME: DANILO ALTAMIRANO PATHOLOGY DATE OF : 56 REPORT #: [id number] PHYSICIAN: BJ PATHOLOGY PCP: ARTURO WALDROP MD REPORT IS CONFIDENTIAL AND NOT TO BE RELEASED WITHOUT AUTHORIZATION [facility] [address], [place] [address] Signed GROSS DESCRIPTION: A. The specimen, labeled and designated "Altamirano, proximal colon biopsy," is received in formalin and consists of five chavarria soft tissue fragments, ranging from 0.1-0.4 cm. Entirely submitted in (A1). B. The specimen, labeled and designated "Altamirano, mid colon biopsy," is received in formalin and consists of two chavarria soft tissue fragments, ranging from 0.1-0.2 cm. Entirely submitted in (B1). C. The specimen, labeled and designated "Altamirano, descending colon biopsy," is received in formalin and consists of two chavarria soft tissue fragments, ranging from 0.3-0.4 cm. Entirely submitted in (C1). D. The specimen, labeled and designated "Altamirano, sigmoid colon biopsy," is received in formalin and consists of three chavarria soft tissue fragments, ranging from 0.3-0.4 cm. Entirely submitted in (D1). E. The specimen, labeled and designated "Altamirano, rectum colon biopsy," is received in formalin and consists of three chavarria soft tissue fragments, ranging from 0.2-0.3 cm. Entirely submitted in (E1). VB (under the direct supervision of a pathologist) The Gross Description was prepared using a voice recognition system. The report was reviewed for accuracy; however, sound-alike word errors, addition and/or deletions may occur. If there are any questions about this report, please contact Client Services. ADDITIONAL NOTES: Immunohistochemical and/or in situ hybridization studies if performed in this case included appropriate positive controls that reacted as expected. This test was developed and its performance characteristics determined by [facility]. It has not been cleared or approved by the U.S. Food and Drug Administration. The FDA has determined that such clearance or approval is not necessary. This test is used for clinical purposes. It should not be regarded as investigational or for research. [facility] is certified under the Clinical Laboratory Improvement Amendments of 1988 (CLIA) as qualified to perform high complexity clinical laboratory testing. PERFORMING LABORATORY: Technical component was performed by [facility], [address] [place] [id number] (CLIA# [id number]). Professional interpretation was performed by [facility], [address] [place] [phone] (CLIA#: PATIENT NAME: DANILO ALTAMIRANO PATHOLOGY DATE OF : 56 REPORT #: [id number] PHYSICIAN: BJ PATHOLOGY PCP: ARTURO WALDROP MD REPORT IS CONFIDENTIAL AND NOT TO BE RELEASED WITHOUT AUTHORIZATION [address] [place], [place] [address] Signed [id number]). Diagnostician: Thelma Pizano MD Pathologist Electronically Signed 06/25/2024 Copies: ~ PATIENT NAME: DANILO ALTAMIRANO PATHOLOGY DATE OF : 56 REPORT #: [id number] PHYSICIAN: BJ PATHOLOGY PCP: ARTURO WALDROP MD REPORT IS CONFIDENTIAL AND NOT TO BE RELEASED WITHOUT AUTHORIZATION
== END 2024-06-18 16:05 | disposition home or self-care (01) | DRG 386 ==
LOC: ED 15:55 → MS 21:45
PROVIDERS: Emergency Medicine; Family Medicine; ADMIT Family Medicine; ATTEND Family Medicine
DX: K51.90 Ulcerative colitis, unspecified, without complications (principal); N17.9 Acute kidney failure, unspecified; J45.909 Unspecified asthma, uncomplicated; I48.91 Unspecified atrial fibrillation; E83.42 Hypomagnesemia; D64.9 Anemia, unspecified; G47.00 Insomnia, unspecified; G20.A1 Parkinson's disease without dyskinesia, without mention of fluctuations; Z86.73 Personal history of transient ischemic attack (TIA), and cerebral infarction without residual deficits; E87.6 Hypokalemia; E66.9 Obesity, unspecified; Z90.89 Acquired absence of other organs; Z90.710 Acquired absence of both cervix and uterus; Z90.49 Acquired absence of other specified parts of digestive tract; Z98.890 Other specified postprocedural states; Z91.041 Radiographic dye allergy status; Z88.5 Allergy status to narcotic agent; Z91.018 Allergy to other foods; Z88.8 Allergy status to other drugs, medicaments and biological substances; Z79.899 Other long term (current) drug therapy; Z79.82 Long term (current) use of aspirin; Z91.012 Allergy to eggs; Z79.84 Long term (current) use of oral hypoglycemic drugs
CPT/HCPCS: 00811; 36415; 74177; 80048; 80053; 81003; 83735; 84100; 84443; 85025; 86140; 87045; 87046; 88305; 88313; 93005; 93010; 93306; 96361; 96375; 99285-25; A9270; J1100; J1200; J1720; J1790; J2405; J2470; J2704; J3475; J3480; J3490; J7030; J7060; J7121; J7512; Q9967

== ENCOUNTER 2024-06-28 10:22 | Emergency (ER) | payer MEDICARE, OTHER ==
[~2024-06-28] VITALS: Ht 165.1 cm; Wt 108.0 kg
[~2024-06-28 10:22] MED LIST changes: +CLONAZEPAM1 MG PO; +DELZICOL400 M1 PO; +DESONIDE15 G1 TOP; +DICLOFENAC SODI75 MG PO; +DIFLUCAN100 MG PO; +DULOXETINE HCL30 MG PO; +FLUTICASONE P10.6 GM INH; +LEVOTHYROXINE150 MCG PO; +METRONIDAZOLE250 MG PO; +PANTOPRAZOLE SO40 MG PO; +PREDNISONE20 MG PO
--- OUTSIDE RECORDS SUMMARY | 2024-06-28 10:32 | XMS ---
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 Anthony VISIT COUNT (12 MO.) [address] TOTAL 9 NOTE: Visits indicate total known visits. ED/UCC VISIT TRACKING (12 MO.) 06/28/2024 10:23 [facility] [place] TYPE: Emergency COMPLAINT: - RECTAL BLEEDING 06/13/2024 15:55 [facility] [place] TYPE: Emergency COMPLAINT: - FEVER/VOMITING 03/05/2024 06:54 [facility] [place] TYPE: Emergency DIAGNOSES: - Unspecified adverse effect of drug or medicament, initial encounter - ALLERGIC REACTION 03/03/2024 11:06 [facility] [place] TYPE: Emergency DIAGNOSES: - Headache, unspecified - Lower abdominal pain, unspecified - HEADACHE L ABD PAIN 02/28/2024 19:58 [facility] [place] TYPE: Emergency DIAGNOSES: - Fall on same level, unspecified, initial encounter - Traumatic subdural hemorrhage with loss of consciousness status unknown, initial encounter - Fall 12/25/2023 10:08 [facility] [place] TYPE: Emergency DIAGNOSES: - Diarrhea, unspecified - Dysuria - Lower abdominal pain, unspecified - POSS UTI KIDNEY INFECTION 11/14/2023 20:38 [facility] [place] TYPE: Emergency COMPLAINT: - FALL DIAGNOSES: - Allergy status to analgesic agent - Allergy status to narcotic agent - Allergy status to other antibiotic agents - Allergy status to sulfonamides - Allergy to eggs - Allergy to other foods - Contusion of left forearm, initial encounter - Contusion of left upper arm, initial encounter - Fall on same level from slipping, tripping and stumbling without subsequent striking against object, initial encounter - Hormone replacement therapy - Latex allergy status - CHCF (current) use of aspirin - 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 - Other wood floor refinisher (current) drug therapy - Other nonmedicinal substance allergy status - Other specified places as the place of occurrence of the external cause - Parkinson's disease without dyskinesia, without mention of fluctuations - Unspecified asthma, uncomplicated 09/02/2023 20:49 [facility] [place] TYPE: Emergency COMPLAINT: - CHEST PAIN, SOB DIAGNOSES: - Allergy status to analgesic agent - Allergy status to narcotic agent - Allergy status to other antibiotic agents - Allergy status to other drugs, medicaments and biological substances - Allergy to eggs - Allergy to other foods - Chest pain, unspecified - Contact with and (suspected) exposure to COVID-19 - Hormone replacement therapy - Latex allergy status - CHCF (current) use of aspirin - Other wood floor refinisher (current) drug therapy - Other nonmedicinal substance allergy status - Other specified postprocedural states - Parkinson's disease without dyskinesia, without mention of fluctuations - Pneumonia, unspecified organism - Unspecified asthma, uncomplicated - PARKINSON'S DIS W/O DYSKINESIA, W/O MENTION OF FLU 09/02/2023 17:37 [facility] [place] TYPE: Emergency COMPLAINT: - Chest Pain DIAGNOSES: - Chest Pain INPATIENT VISIT TRACKING (12 MO.) 06/13/2024 21:[address] [facility] [place] TYPE: Medical Surgical COMPLAINT: - COLITIS, UNINTENTIONAL WEIGHT LOSS, RENAL INSUFF DIAGNOSES: - Acquired absence of both cervix and uterus - Acquired absence of both cervix and uterus - Acquired absence of other organs - Acquired absence of other organs - Acquired absence of other specified parts of digestive tract - Acquired absence of other specified parts of digestive tract - Acute kidney failure, unspecified - Acute kidney failure, unspecified - Allergy status to narcotic agent - Allergy status to narcotic agent - Allergy status to other drugs, medicaments and biological substances - Allergy status to other drugs, medicaments and biological substances - Allergy to eggs - Allergy to eggs - Allergy to other foods - Allergy to other foods - Anemia, unspecified - Anemia, unspecified - Hypokalemia - Hypokalemia - Hypomagnesemia - Hypomagnesemia - Insomnia, unspecified - Insomnia, unspecified - CHCF (current) use of aspirin - 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 - CHCF (current) use of oral hypoglycemic drugs - CHCF (current) use of oral hypoglycemic drugs - Noninfective gastroenteritis and colitis, unspecified - Obesity, unspecified - Obesity, unspecified - Other wood floor refinisher (current) drug therapy - Other wood floor refinisher (current) drug therapy - Other specified postprocedural states - Other specified postprocedural states - Parkinson's disease without dyskinesia, without mention of fluctuations - Parkinson's disease without dyskinesia, without mention of fluctuations - Personal history of transient ischemic attack (TIA), and cerebral infarction without residual deficits - Personal history of transient ischemic attack (TIA), and cerebral infarction without residual deficits - Radiographic dye allergy status - Radiographic dye allergy status - Ulcerative colitis, unspecified, without complications - Ulcerative colitis, unspecified, without complications - Unspecified asthma, uncomplicated - Unspecified asthma, uncomplicated - Unspecified atrial fibrillation - Unspecified atrial fibrillation [email or web address]
[2024-06-28 15:28] LABS: EOSINOPHILS 1.2 % (0-6); HEMATOCRIT 25.6 % (35.0-50.0); HEMOGLOBIN 8.3 g/dL (12.0-18.0); LYMPHOCYTES 31.9 % (24-44); MCH 27.5 (27-36); MCHC 32.4 g/dl (30-36); MONOCYTES 6.5 % (0-12); NEUTROPHILS 58.4 % (39-80); PLATELET COUNT 491 K/uL (140-440); RBC 3.01 M/ul (4.3-5.7)
[2024-06-28] MEDS ORDERED: SODIUM CHLORIDE 0.9% 500 ML IV PRN (15:30)
[2024-06-28 15:36] LABS: INR 0.93 (0.80-1.30); PROTIME 12.1 Sec (11.2-14.2)
[2024-06-28 15:38] LABS: PARTIAL THROMBOPLASTIN TIME 27.8 Sec (22.9-41.3)
[2024-06-28 15:41] LABS: ALBUMIN 2.5 g/dL (3.4-5.0); ALBUMIN/GLOBULIN RATIO 0.69 (1.1-2.4); ANION GAP 10.4 (7-21); BILIRUBIN, TOTAL 0.3 ng/dL (0.2-1.0); BUN/CREATININE RATIO 14.77 (6.0-28.6); CREATININE, SERUM 0.88 mg/dL (0.55-1.02); POTASSIUM 3.4 mmol/L (3.5-5.1); PROTEIN, TOTAL 6.1 g/dL (6.4-8.2)
[2024-06-28] MEDS ORDERED: SUCRALFATE1 GM PO (15:43)
[2024-06-28 16:04] LABS: ABO A; ANTIBODY SCREEN NEGATIVE; RH POSITIVE
[2024-06-28] MEDS ORDERED: SODIUM CHLORIDE 0.9% 1,000 ML IV PRN (16:30)
[2024-06-28] MEDS ORDERED: ONDANSETRON ODT8 MG PO (18:11)
[2024-06-28] MEDS ORDERED: DICYCLOMINE HCL10 MG PO (18:12)
[2024-06-28 18:23] VITALS: BP 173/83
== END 2024-06-28 18:23 | disposition home or self-care (01) ==
LOC: ED 10:22
PROVIDERS: Emergency Medicine
DX: K52.9 Noninfective gastroenteritis and colitis, unspecified (principal); D64.9 Anemia, unspecified; J45.909 Unspecified asthma, uncomplicated; I48.91 Unspecified atrial fibrillation; G20.A1 Parkinson's disease without dyskinesia, without mention of fluctuations; Z86.73 Personal history of transient ischemic attack (TIA), and cerebral infarction without residual deficits; Z88.2 Allergy status to sulfonamides; Z88.1 Allergy status to other antibiotic agents; Z88.5 Allergy status to narcotic agent; Z88.8 Allergy status to other drugs, medicaments and biological substances; Z91.040 Latex allergy status; Z91.012 Allergy to eggs; Z91.018 Allergy to other foods; Z91.048 Other nonmedicinal substance allergy status; Z79.890 Hormone replacement therapy; Z79.899 Other long term (current) drug therapy
CPT/HCPCS: 36415; 74177; 80053; 83605; 83690; 85025; 85610; 85730; 86850; 86900; 86901; 99284-25

== ENCOUNTER 2024-08-07 10:43 | Day surgery (SDC) | payer MEDICARE, OTHER ==
[2024-07-31 14:10] VITALS: BP 153/78
[~2024-08-07] VITALS: Ht 162.6 cm; Wt 109.1 kg
[~2024-08-07 10:43] MED LIST changes: +DICYCLOMINE HCL10 MG PO; +IBLOOD GLUCOSE TEST STRIP 1 EA TEST VI PRN; +LACTATED RINGER'S 1,000 ML IV SCH; +LIDOCAINE HCL 1% 5 ML SDV INJ ONE; +MESALAMINE DR400 MG PO; +MULTI COMPLETE1 EACH PO; +ONDANSETRON ODT8 MG PO; +PREVACID30 MG PO; +PROBIOTIC DIGE1 EACH PO; +SUCRALFATE1 GM PO; +ZINC GLUCONATE100 MG PO
[2024-08-07 11:03] VITALS: BP 157/71
[2024-08-07] MEDS ORDERED: LIDOCAINE HCL 2% 5 ML SDV ONE (12:14)
[2024-08-07] MEDS ORDERED: propofoL 200 MG/20 ML VIAL ONE (12:14)
--- NOTE | 2024-08-07 13:19 | NUR ---
08/07/24 Linda Riojas 1308 PT ARRIVED TO PACU AWAKE AND TALKING TO RN. PLAN OF CARE DISCUSSED. PT DENIES CONCERNS AND DENIES PAIN AND NAUSEA. VSS. 1317 MD AT BEDSIDE TALKING TO PT.
[2024-08-07 13:33] VITALS: BP 138/69
--- NOTE | 2024-08-08 12:25 | OR ---
[facility] [address], [place] [address] Signed DATE OF OPERATION: 08/07/2024 SURGEON: Fercho Howell MD PREOPERATIVE DIAGNOSIS: History of severe pancolitis on June 15, 2024, not considered ulcerative colitis. POSTOPERATIVE DIAGNOSIS: Mild persistent colitis, no evidence of ulcerations, much improved. PROCEDURE: Total colonoscopy to cecum with random biopsies. ANESTHESIA: Intravenous sedation, propofol; Handy Herr CRNA INDICATION: This 64-year-old white woman is a patient of Dr. Waldrop in [place], [place]. She presented to the hospital with bleeding, diarrhea, and CT scan finding showing pancolitis. Colonoscopy was performed, which showed probable ulcerative colitis. She was treated in the usual way with Flagyl, prednisone, following hydrocortisone and started on mesalamine as well as PPI medication. She has had progressive improvement since that time; however, the pathology reports that returned showed "completely ulcerated colonic mucosa," with withering of superficial crypts and hypocellular fibrosis of the lamina propria, but no evidence of acute cryptitis or crypt abscess or granulomas per se. On that basis, the colitis was considered unlikely to be ulcerative colitis proper nor Crohn disease. Differential was considered to include medication induced injury, infectious colitis or toxigenic infection such as E coli or possibly autoimmune disease. She is clinically much improved. I have recommended colonoscopy to assess for mucosal healing and to better characterize the underlying inflammatory process. If complete healing is noted, she may reasonably abandon medications on a routine basis. She understands risk of bleeding, infection, and perforation related to colonoscopy and wished to proceed. FINDINGS: Much improvement was noted. There was still low-grade inflammatory change and fine granular change in the mucosa to some degree. Biopsies were taken throughout. There is no sign of cancer and only a few scattered diverticula. DESCRIPTION OF PROCEDURE: Electronically Signed By: FERCHO HOWELL MD 08/08/24 8935 PATIENT NAME: DANILO ALTAMIRANO OPERATIVE REPORT DATE OF : 56 REPORT #: [id number] PHYSICIAN: FERCHO HOWELL MD PCP: ARTURO WALDROP MD REPORT IS CONFIDENTIAL AND NOT TO BE RELEASED WITHOUT AUTHORIZATION [facility] [address], [place] [address] Signed The patient was brought to the endoscopy suite and placed in the lateral decubitus position given intravenous sedation and propofol infusional technique by the ergonomics engineer. Digital rectal examination was normal. An Olympus video colonoscope was passed into the rectum and manipulated throughout the colon ultimately intubating the cecum itself. Abdominal wall stabilization was required. Biopsies were taken of the cecum, right colon, transverse colon, left colon, sigmoid, and rectum. In all areas, much improvement was noted compared to the previous colitis, but there still was some mild edema as manifest by hazy or absent submucosal blood vessels. There was no sign of neoplasm. There were few diverticula. The scope was removed. At the conclusion, the patient was taken to the recovery room in good condition. CONCLUDING DIAGNOSIS: Persistent low-grade inflammatory change throughout the colon and rectum. PLAN: We will continue the present management, which includes mesalamine. I will see her back in the office in a few weeks. We will review her pathology report in hopes of better define the underlying colitis. MD GOKUL Andre/MODL /[id number] cc: Dr. Waldrop [facility] Copies: ~ Electronically Signed By: FERCHO HOWELL MD 08/08/24 1225 PATIENT NAME: DANILO ALTAMIRANO OPERATIVE REPORT DATE OF : 56 REPORT #: [id number] PHYSICIAN: FERCHO HOWELL MD PCP: ARTURO WALDROP MD REPORT IS CONFIDENTIAL AND NOT TO BE RELEASED WITHOUT AUTHORIZATION
--- NOTE | 2024-08-14 06:24 | PATH ---
[facility] [address] [facility] [place], [place] [address] Signed SPECIMEN(S): A CECUM COLON BIOPSY SPECIMEN(S): B HEPATIC FLEXURE COLON BIOPSY SPECIMEN(S): C TRANSVERSE COLON BIOPSY SPECIMEN(S): D DESCENDING COLON BIOPSY SPECIMEN(S): E SIGMOID COLON BIOPSY SPECIMEN(S): F RECTUM SPECIMEN SOURCE: A. CECUM COLON BIOPSY B. HEPATIC FLEXURE COLON BIOPSY C. TRANSVERSE COLON BIOPSY D. DESCENDING COLON BIOPSY E. SIGMOID COLON BIOPSY F. RECTUM CLINICAL HISTORY: Follow-up for colitis, mild inflammation, pancolitis FINAL PATHOLOGIC DIAGNOSIS: A. Colon, cecum, biopsy: - No significant histopathology. B. Colon, hepatic flexure, biopsy: - Normal-appearing colon with prep effect. - See comment. C. Colon, transverse, biopsy: - Normal-appearing colon with prep effect. - See comment. D. Colon, descending, biopsy: - No significant histopathology. E. Colon, sigmoid, biopsy: - No significant histopathology. F. Rectum, biopsy: - No significant histopathologic alterations. COMMENT: A, D, E. The sections from the specimen contain architecturally normal colonic mucosa without crypt distortion. There is no acute or chronic inflammation. There is no evidence of microscopic colitis. There are no abnormal organisms or infiltrates. There are no polyps or neoplasms. B, C. The sections through the colon biopsies show an architecturally normal PATIENT NAME: DANILO ALTAMIRANO ALEXSANDRA PATHOLOGY DATE OF : 56 REPORT #: [id number] PHYSICIAN: BJ PATHOLOGY PCP: ARTURO WALDROP MD REPORT IS CONFIDENTIAL AND NOT TO BE RELEASED WITHOUT AUTHORIZATION [facility] [address] [place], [place] [address] Signed colonic mucosa. There is no evidence of acute or chronic inflammation. There is mild mucosal edema and hemorrhage. This is likely secondary to the bowel prep. There is no evidence of acute, chronic or microscopic colitis. F. The sections from the specimen are architecturally normal without crypt distortion. There is no acute or chronic inflammation. There is no evidence of microscopic colitis. There are no abnormal organisms or infiltrates. There is no evidence of polyps or neoplasia. TWK MICROSCOPIC EXAMINATION: Histologic sections of all submitted blocks are examined by light microscopy. These findings, together with the gross examination, support the pathologic diagnosis. GROSS DESCRIPTION: A. The specimen, labeled and designated "Altamirano, cecum colon biopsy," is received in formalin and consists of four chavarria soft tissue fragments, ranging from 0.1-0.6 cm. Entirely submitted in (A1). B. The specimen, labeled and designated "Altamirano, hepatic flexure colon biopsy," is received in formalin and consists of three chavarria soft tissue fragments, ranging from 0.1-0.2 cm. Entirely submitted in (B1). C. The specimen, labeled and designated "Altamirano, transverse colon biopsy," is received in formalin and consists of three chavarria soft tissue fragments, ranging from 0.2-0.3 cm. Entirely submitted in (C1). D. The specimen, labeled and designated "Altamirano, descending colon biopsy," is received in formalin and consists of three chavarria soft tissue fragments, ranging from 0.1-0.4 cm. Entirely submitted in (D1). E. The specimen, labeled and designated "Altamirano, sigmoid colon biopsy," is received in formalin and consists of three chavarria soft tissue fragments, ranging from 0.2-0.4 cm. Entirely submitted in (E1). F. The specimen, labeled and designated "Rosalva rectum biopsy," is received in formalin and consists of two chavarria soft tissue fragments, ranging from 0.3-0.4 cm. Entirely submitted in (F1). VB (under the direct supervision of a pathologist) The Gross Description was prepared using a voice recognition system. The report was reviewed for accuracy; however, sound-alike word errors, addition and/or deletions may occur. If there is any PATIENT NAME: DANILO ALTAMIRANO PATHOLOGY DATE OF : 56 REPORT #: [id number] PHYSICIAN: BJ ADHIKARI PCP: ARTURO WALDROP MD REPORT IS CONFIDENTIAL AND NOT TO BE RELEASED WITHOUT AUTHORIZATION [address] [address] Signed question about this report, please contact Client Services. ADDITIONAL NOTES: Immunohistochemical and/or in situ hybridization studies if performed in this case included appropriate positive controls that reacted as expected. This test was developed and its performance characteristics determined by [facility]. It has not been cleared or approved by the U.S. Food and Drug Administration. The FDA has determined that such clearance or approval is not necessary. This test is used for clinical purposes. It should not be regarded as investigational or for research. [facility] is certified under the Clinical Laboratory Improvement Amendments of 1988 (CLIA) as qualified to perform high complexity clinical laboratory testing. PERFORMING LABORATORY: Technical component was performed by [facility], [address] [place] [id number] (CLIA# [id number]). Professional interpretation was performed by [facility], [address] [place] [address] (CLIA#:[id number]). Diagnostician: Bogdan Armstrong MD Pathologist Electronically Signed 08/14/2024 Copies: ~ PATIENT NAME: DANILO ALTAMIRANO PATHOLOGY DATE OF : 56 REPORT #: [id number] [email or web address] PCP: ARTURO WALDROP MD REPORT IS CONFIDENTIAL AND NOT TO BE RELEASED WITHOUT AUTHORIZATION
== END 2024-08-07 13:45 | disposition home or self-care (01) ==
LOC: DS 10:43 → OPS 10:43 → DS 11:00 → OPS 12:10
PROVIDERS: ATTEND Surgery
PROC: 0DBL8ZX Excision of Transverse Colon, Via Natural or Artificial Opening Endoscopic, Diagnostic (ICD-10-PCS; 2024-08-07)
PROC: 0DBN8ZX Excision of Sigmoid Colon, Via Natural or Artificial Opening Endoscopic, Diagnostic (ICD-10-PCS; 2024-08-07)
PROC: 0DBP8ZX Excision of Rectum, Via Natural or Artificial Opening Endoscopic, Diagnostic (ICD-10-PCS; 2024-08-07)
PROC: 0DBF8ZX Excision of Right Large Intestine, Via Natural or Artificial Opening Endoscopic, Diagnostic (ICD-10-PCS; 2024-08-07)
PROC: 0DBG8ZX Excision of Left Large Intestine, Via Natural or Artificial Opening Endoscopic, Diagnostic (ICD-10-PCS; 2024-08-07)
PROC: 0DBH8ZX Excision of Cecum, Via Natural or Artificial Opening Endoscopic, Diagnostic (ICD-10-PCS; principal; 2024-08-07 13:00)
DX: K52.9 Noninfective gastroenteritis and colitis, unspecified (principal); K21.9 Gastro-esophageal reflux disease without esophagitis; E03.9 Hypothyroidism, unspecified
CPT/HCPCS: 00811; 88305; J2003; J2704; J7121

== ENCOUNTER 2025-05-20 06:48 | Day surgery (SDC) | payer MEDICARE, OTHER ==
[~2025-05-20] VITALS: Ht 162.6 cm; Wt 98.9 kg
[~2025-05-20 06:48] MED LIST changes: +ACETAMINOPHEN500 MG PO; +FEROSUL325 MG PO; -IBLOOD GLUCOSE TEST STRIP 1 EA TEST VI PRN; -LIDOCAINE HCL 1% 5 ML SDV INJ ONE; +PREDNISONE10 MG PO; +Ropivacaine HCl 20 MG/10 ML AMP ONE; +VAZALORE81 MG PO; +WEGOVY2.4 MG/0.7 SUB-Q; +ZETIA10 MG PO
[2025-05-20] MEDS ORDERED: LIDOCAINE HCL 1% 5 ML SDV INJ ONE (07:00)
[2025-05-20] MEDS ORDERED: PANTOPRAZOLE SODIUM 40 MG TABEC PO SCH (07:00)
[2025-05-20] MEDS ORDERED: GABAPENTIN 600 MG TAB PO SCH (07:00)
[2025-05-20] MEDS ORDERED: CEFAZOLIN SODIUM 2 GM in SODIUM CHLORIDE 0.9% 100 ML IV SCH ×3 (07:00→17:00)
[2025-05-20] MEDS ORDERED: [UNRECOGNIZED DRUG - REMARK] XX SCH (07:00)
[2025-05-20] MEDS ORDERED: IBLOOD GLUCOSE TEST STRIP 1 EA TEST VI PRN ×2 (07:00→10:45)
[2025-05-20] MEDS ORDERED: ROPIVACAINE IN 0.9% SOD CHL/PF 545 ML ELS.PMP.HR IRRIGATION SCH (07:00)
[2025-05-20] MEDS ORDERED: TRANEXAMIC ACID IN NACL,ISO-OS 1,000 MG/100 ML PIGGYBACK IV SCH ×2 (07:00→11:30)
[2025-05-20] MEDS ORDERED: OXYCODONE HCL 5 MG TAB PO SCH (07:00)
[2025-05-20 07:29] VITALS: BP 170/74
[2025-05-20] MEDS ORDERED: MIDAZOLAM HCL 2 MG/2 ML VIAL ONE (07:55)
[2025-05-20] MEDS ORDERED: LIDOCAINE HCL 2% 5 ML SDV ONE (07:55)
[2025-05-20] MEDS ORDERED: DEXAMETHASONE SOD PHOS 4 MG/ML VIAL ONE (07:55)
[2025-05-20] MEDS ORDERED: SODIUM CHLORIDE 0.9% 20 ML IV ONE (07:56)
[2025-05-20] MEDS ORDERED: Ropivacaine HCl 0.5% 30 ML VIAL ONE (07:56)
[2025-05-20] MEDS ORDERED: GABAPENTIN 300 MG CAP PO ONE (08:00)
[2025-05-20] MEDS ORDERED: APRISO0.375 GM PO (08:02)
[2025-05-20] MEDS ORDERED: EZETIMIBE10 MG PO (08:03)
[2025-05-20] MEDS ORDERED: KETOROLAC TROMETHAMINE 15 MG/ML VIAL IV PRN (08:30)
[2025-05-20] MEDS ORDERED: OXYCODONE HCL 5 MG TAB PO PRN (08:30)
[2025-05-20] MEDS ORDERED: ASPIRIN 325 MG TAB PO SCH (09:00)
[2025-05-20] MEDS ORDERED: fentaNYL citrate 100 MCG/2 ML VIAL ONE (09:50)
[2025-05-20] MEDS ORDERED: KETAMINE in NS 50 MG/5 ML SYR ONE (09:51)
[2025-05-20] MEDS ORDERED: LEVODOPA/CARBIDOPA 25/100 1 EA TAB PO SCH (10:00)
[2025-05-20] MEDS ORDERED: NALOXONE HCL 0.4 MG SYR IV PRN (10:45)
[2025-05-20] MEDS ORDERED: fentaNYL citrate 50 MCG/ML SDV IV PRN (10:45)
[2025-05-20] MEDS ORDERED: CEFUROXIME250 MG PO (11:03)
[2025-05-20] MEDS ORDERED: OXYCODONE HCL5 M1 PO (11:04)
[2025-05-20] MEDS ORDERED: ASPIRIN325 MG PO (11:04)
[2025-05-20] MEDS ORDERED: TRANEXAMIC ACI650 MG PO (11:06)
[2025-05-20 11:49] VITALS: BP 129/59
--- NOTE | 2025-05-20 12:10 | NUR ---
1145- RECIEVED REPORT FROM DRAWER UPFITTER. VITALS, PAIN, AND N/V NOTED. DRESSING AND NEURO ASSESSMENT NOTED. PT GIVEN DRINK AND PUDDING PER REQUEST. IF TOLLERATING DRINKING FLUIDS, WILL GIVE ORAL MEDICATION PER EMAR. PT AGREED TO PLAN.
--- NOTE | 2025-05-20 12:32 | NUR ---
1230- GAVE MEDS PER EMAR AFTER PT CONFIRMED SHE DID NOT FEEL NAUSEA. 1233- PT HEADED INTO ROOM TO WORK WITH PATIENT.
--- NOTE | 2025-05-20 12:58 | OR ---
[facility] [address], [place] [address] Signed DATE OF OPERATION: 05/20/2025 SURGEON: Sylvia Zuniga MD PREOPERATIVE DIAGNOSIS: Severe degenerative joint disease, left knee. POSTOPERATIVE DIAGNOSIS: Severe degenerative joint disease, left knee. PROCEDURE PERFORMED: Left total knee arthroplasty. PROGRAM PRODUCTION SPECIALIST: Bethanie Rivers PA-C. Bethanie was present and critical for all portions of procedure. ANESTHESIA: Spinal. BLOOD LOSS: 163 mL. TOURNIQUET TIME: Zero. IMPLANTS: Berkey Triathlon size 3, 10 mm polyethylene, a 32 mm patella. BRIEF HISTORY: Danilo is a 65-year-old female who has had nonoperative treatment for her knee arthritis for quite a while. This is failing to control symptoms. She wished to proceed with surgery. Risks, benefits, and alternatives were discussed and she understood and wished to proceed. DESCRIPTION OF PROCEDURE: Once consent was obtained, she was taken to the operating room. After adequate anesthesia, she was placed on operating table with a left hip bump. The leg was prepped and draped in a standard sterile fashion. The knee was approached through a standard anterior midline incision. Skin flaps were developed medially and laterally. A low mid Electronically Signed By: SYLVIA ZUNIGA MD 05/20/25 1258 PATIENT NAME: DANILO ALTAMIRANO OPERATIVE REPORT DATE OF : 56 REPORT #: [id number] PHYSICIAN: SYLVIA ZUNIGA MD PCP: ARTURO WALDROP MD REPORT IS CONFIDENTIAL AND NOT TO BE RELEASED WITHOUT AUTHORIZATION [facility] [address], [place] [address] Signed vastus arthrotomy was performed and the infrapatellar fat pad was excised. The MCL was of a sleeve around the posteromedial corner. Anterior horns of menisci were transected as we went. The ACL was transected. PCL was found to be intact. Navigation computer arrays were then placed in the distal femur and the proximal tibia. The leg was registered with computer, followed by the fine anatomic points of the knee. Varus valgus testing was undertaken. She was a little bit tight medially. Adjustments were made. The robot was then brought in. Four straight cuts and two angle cuts were made with care taken to protect the patellar tendon and MCL. The bone remnants removed as were any remaining osteophytes. Osteophytes were removed off the posterior femur, but no release was performed. The trials were then positioned. Knee was taken through range of motion and found to be good. The patella was cut, sized and drilled for a 32 patella. The distal femoral drill holes were completed and the proximal tibia was completed using the keel punch followed by the four drill holes. The implants were obtained. The tibia was impacted in position first followed by the polyethylene. The femur was then impacted until was well-seated and then the patella was clamped into position. The wound was copiously irrigated with IrriSept and normal saline. The periarticular soft tissue was injected with 100 mL ropivacaine. The arthrotomy was closed with #2 FiberWire and 0 Quill due to her triclosan allergy we were unable to use Stratafix. It should be noted that the femur was noted at this point to be a right instead of the left and this was switched out. The subcutaneous tissue was closed with 0 Quill. The skin with jose and the wound dressed with an Acticoat-7 dressing, ABD, and CAROLA wrap. She tolerated the procedure well. All sponge, needle, and instrument counts were correct. Sylvia Zuniga MD BA/MODL /[id number] Copies: ~ Electronically Signed By: SYLVIA ZUNIGA MD 05/20/25 1258 PATIENT NAME: DANILO ALTAMIRANO OPERATIVE REPORT DATE OF : 56 REPORT #: [id number] PHYSICIAN: SYLVIA ZUNIGA MD PCP: ARTURO WALDROP MD REPORT IS CONFIDENTIAL AND NOT TO BE RELEASED WITHOUT AUTHORIZATION
[2025-05-20 13:36] VITALS: BP 130/58
--- NOTE | 2025-05-20 13:42 | NUR ---
PT BACK TO ROOM FROM PHYSICAL THERAPY. PT IS BACK TO BED. RESP EVEN AND UNLABORED. CRYO CUFF IN PLACE AND RUNNING. REFILLED WATER. LUNCH ORDERED. FAMILY AT BEDSIDE. NO OTHER NEEDS AT THIS TIME. CALL LIGHT WITHIN REACH.
[2025-05-20] MEDS ORDERED: GABAPENTIN 300 MG CAP PO SCH (15:00)
[2025-05-20 15:20] VITALS: BP 155/75
--- NOTE | 2025-05-20 15:37 | NUR ---
1320- VITAL SIGNS OBTAINED. PT REPORTS PAIN 3/10 AND DENIES NAUSEA. PT REPORTS NEEDING TO USE THE RESTROOM. PT IS UP TO THE RESTROOM USING HER FRONT WHEELED WALKER WITH NO ISSUES AND PT IS ABLE TO RETURN TO ROOM SAFELY. DISCHARGE INFORMATION GONE OVER AND ALL QUESTIONS ANSWERED. IV REMOVED. PT IS ABLE TO TRANSFER TO WHEELCHAIR SAFELY USING FWW. PT IS ABLE TO TRANSFER TO FRIENDS VEHICLE WITH NO ISSUES. PT HAS ALL BELONGINGS.
[2025-05-20] MEDS ORDERED: SENNOSIDES 1 TAB PO SCH (21:00)
[2025-05-21] MEDS ORDERED: DICLOFENAC SOD 75 MG TABEC PO SCH (08:00)
== END 2025-05-20 15:20 | disposition home or self-care (01) ==
LOC: DS 06:48
PROVIDERS: ATTEND Specialist
PROC: 0SRD0JZ Replacement of Left Knee Joint with Synthetic Substitute, Open Approach (ICD-10-PCS; principal; 2025-05-20 09:05)
DX: M17.12 Unilateral primary osteoarthritis, left knee (principal); G89.18 Other acute postprocedural pain; J45.909 Unspecified asthma, uncomplicated; E03.9 Hypothyroidism, unspecified; K21.9 Gastro-esophageal reflux disease without esophagitis; G20.A1 Parkinson's disease without dyskinesia, without mention of fluctuations; E78.00 Pure hypercholesterolemia, unspecified; Z79.82 Long term (current) use of aspirin; Z79.890 Hormone replacement therapy; Z79.899 Other long term (current) drug therapy; Z88.1 Allergy status to other antibiotic agents; Z88.2 Allergy status to sulfonamides; Z88.5 Allergy status to narcotic agent; Z88.8 Allergy status to other drugs, medicaments and biological substances; Z91.012 Allergy to eggs; Z91.018 Allergy to other foods; Z91.040 Latex allergy status; Z91.09 Other allergy status, other than to drugs and biological substances
CPT/HCPCS: 0055T; 27447; 01402; 64447; 64450; 64454; 73560; 76942; 97110; 97161; 97530; A9270; C1776; J0688; J1100; J2003; J2250; J2704; J2795; J3010; J3490; J7121